=== PATIENT | female | born 1950 | race Caucasian/White ===

== ENCOUNTER 2018-02-24 08:56 | Day surgery (SDC) | payer MEDICARE, MEDICAID ==
[~2018-02-24] VITALS: Ht 162.6 cm; Wt 95.0 kg
[~2018-02-24 08:56] MED LIST: CHOL200035 PO; COU3T PO; COU7.5T PO; ESOM20CA PO; FENO48TA15 PO; FURO-150 PO; GABA-338 PO; LISI40TA4 PO; NORCO10T PO; POTA8TAB46 PO; PRAV40TA65 PO
[2018-02-24 09:05] VITALS: BP 142/73
[2018-02-24] MEDS ORDERED: fentaNYL/PF 50MCG/1 ML 2ML syringe ONE (09:20)
[2018-02-24] MEDS ORDERED: MIDAZolam 5mg/5ml vial ONE (09:20)
[2018-02-24] MEDS ORDERED: LIDOcaine Viscous 15ml cup ONE (09:20)
[2018-02-24] MEDS ORDERED: WARF5TAB PO (09:22)
[2018-02-24] MEDS ORDERED: FENO145T38 PO (09:24)
[2018-02-24] MEDS ORDERED: ATOR-2 PO (09:24)
[2018-02-24] MEDS ORDERED: LISI-600 PO (09:25)
[2018-02-24 10:21] VITALS: BP 143/65
[2018-02-24 10:31] VITALS: BP 133/70
[2018-02-24 10:41] VITALS: BP 118/66
== END 2018-02-24 11:00 | disposition home or self-care (01) ==
LOC: GI LAB 08:56
PROVIDERS: ATTEND Internal Medicine Gastroenterology
DX: Z12.11 Encounter for screening for malignant neoplasm of colon (principal); D12.0 Benign neoplasm of cecum; K57.30 Diverticulosis of large intestine without perforation or abscess without bleeding; K44.9 Diaphragmatic hernia without obstruction or gangrene; K22.2 Esophageal obstruction; K29.70 Gastritis, unspecified, without bleeding; Z86.010 Personal history of colon polyps; K21.9 Gastro-esophageal reflux disease without esophagitis
CPT/HCPCS: 43239; 43450; 45385; 99153; G0500; J2250; J3010; J7030; 88305; A4620

== ENCOUNTER 2020-11-18 09:30 | Emergency (ER) | payer MEDICARE, MEDICAID ==
[~2020-11-18] VITALS: Ht 162.6 cm; Wt 90.0 kg
[~2020-11-18 09:30] MED LIST changes: +ATOR-2 PO; -COU7.5T PO; +FENO145T38 PO; -FENO48TA15 PO; +LISI20TA28 PO; -LISI40TA4 PO; -PRAV40TA65 PO; +WARF5TAB2 PO
[2020-11-18 10:26] LABS: BASOPHILS # (AUTO) 0.1 X10'3 (0-0.2); BASOPHILS % (AUTO) 1.3 % (0-1); EOSINOPHILS # (AUTO) 0.1 X10'3 (0-0.9); EOSINOPHILS % (AUTO) 1.1 % (0-6); HEMATOCRIT 44.2 % (35.0-45.0); HEMOGLOBIN 14.8 g/dl (12.0-16.0); LYMPHOCYTES # (AUTO) 1.5 X10'3 (1.1-4.8); LYMPHOCYTES % (AUTO) 18.7 % (21-51); MEAN CORPUSCULAR HEMOGLOBIN 30.9 PG (27.0-31.0); MEAN CORPUSCULAR HGB CONC 33.5 g/dL (33.0-36.5); MEAN PLATELET VOLUME 10.2 FL (7.4-10.4); MONOCYTES # (AUTO) 0.7 X10'3 (0-0.9); MONOCYTES % (AUTO) 8.3 % (2-12); NEUTROPHILS # (AUTO) 5.6 X10'3 (1.8-7.7); NEUTROPHILS % (AUTO) 70.6 % (42-75); PLATELET COUNT 323 X10'3 (140-440); RED CELL DISTRIBUTION WIDTH 13.6 % (11.5-14.5)
[2020-11-18 10:42] LABS: ALANINE AMINOTRANSFERASE 56 U/L (12-78); ALBUMIN 3.3 G/DL (3.4-5.0); ALBUMIN/GLOBULIN RATIO 0.7 (1.1-1.5); ALKALINE PHOSPHATASE 147 IU/L (46-116); ANION GAP 7 (8-16); ASPARTATE AMINO TRANSFERASE 82 U/L (10-37); BILIRUBIN,TOTAL 0.3 MG/DL (0.1-1.0); BLOOD UREA NITROGEN 13 MG/DL (7-18); BUN/CREATININE RATIO 9.9 (6.6-38.0); CALCIUM 9.3 MG/DL (8.5-10.1); CHLORIDE 104 MMOL/L (99-107); CREATININE 1.31 MG/DL (0.40-0.90); GLUCOSE 110 MG/DL (70-104); LIPASE 206 U/L (73-393); POTASSIUM 3.6 MMOL/L (3.5-5.1); SODIUM 140 MMOL/L (135-145); TOTAL CARBON DIOXIDE 28.7 MMOL/L (24-32); TOTAL PROTEIN 7.8 G/DL (6.4-8.2); eGFR 40 ML/MIN
[2020-11-18 11:42] LABS: CLARITY,URINE CLEAR (Clear); COLOR,URINE YELLOW (Yellow); GLUCOSE, URINE NEGATIVE (Neg); KETONES,URINE NEGATIVE (Neg); LEUKOCYTE ESTERASE ,URINE SMALL (Neg); NITRITES, URINE NEGATIVE (Neg); OCCULT BLOOD,URINE NEGATIVE (Neg); PH,URINE 5.5 (4.8-8.0); PROTEIN,URINE NEGATIVE (Neg); UROBILINOGEN,URINE 0.2 E.U/dL (0.2-1.0)
[2020-11-18 11:46] LABS: UA COLLECTION TYPE CLN CATCH MIDSTREAM
[2020-11-18 11:48] LABS: RBC,URINE NONE SEEN /HPF (0-2)
[2020-11-18 11:49] LABS: BACTERIA,URINE FEW /HPF (Neg); CAL OXALATE CRYSTALS 1+ /HPF (NEGATIVE); SQUAMOUS EPITHELIAL CELL,UR MODERATE /LPF (FEW)
[2020-11-18 11:50] LABS: FINE GRANULAR CAST 0-3 /LPF (NEGATIVE); WBC CLUMPS,URINE FEW /HPF (NEGATIVE)
[2020-11-18] MEDS ORDERED: normal saline 1000ML IV soln IVB ONE (11:55)
[2020-11-18] MEDS ORDERED: iohexol 350MG/ML 100ml bottle IV ONE (12:19)
[2020-11-18 15:05] VITALS: BP 138/68
== END 2020-11-18 14:55 | disposition home or self-care (01) ==
LOC: ER 09:30
DX: K57.92 Diverticulitis of intestine, part unspecified, without perforation or abscess without bleeding (principal); E78.00 Pure hypercholesterolemia, unspecified; K21.9 Gastro-esophageal reflux disease without esophagitis; I10 Essential (primary) hypertension; G89.29 Other chronic pain; Z87.11 Personal history of peptic ulcer disease; Z87.440 Personal history of urinary (tract) infections; Z56.0 Unemployment, unspecified; Z90.710 Acquired absence of both cervix and uterus; Z98.51 Tubal ligation status; Z88.6 Allergy status to analgesic agent; Z88.8 Allergy status to other drugs, medicaments and biological substances; Z91.030 Bee allergy status; Z79.01 Long term (current) use of anticoagulants; Z79.899 Other long term (current) drug therapy
CPT/HCPCS: 36415; 74176; 80053; 81001; 83690; 85025; 85610; 87088; 96360; 96361; 99285; J7030; Q9967

== ENCOUNTER 2021-06-16 07:57 | Outpatient (CLI) | payer MEDICARE, MEDICAID ==
[~2021-06-16 07:57] MED LIST changes: -COU3T PO; +DIPH25CA83; -FENO145T38 PO
== END 2021-06-16 23:59 | disposition home or self-care (01) ==
LOC: 64 CT 07:57
PROVIDERS: ATTEND Surgery
DX: K44.9 Diaphragmatic hernia without obstruction or gangrene (principal); K80.20 Calculus of gallbladder without cholecystitis without obstruction; Z98.890 Other specified postprocedural states
CPT/HCPCS: 74176

== ENCOUNTER 2022-04-08 08:34 | Day surgery (SDC) | payer MEDICARE, MEDICAID ==
[~2022-04-08] VITALS: Ht 162.6 cm; Wt 87.3 kg
[2022-04-08 08:45] VITALS: BP 171/89
[2022-04-08] MEDS ORDERED: ALIR75PE5 (08:53)
[2022-04-08] MEDS ORDERED: VIT500TA8 (08:53)
[2022-04-08] MEDS ORDERED: vit B12 (08:53)
[2022-04-08] MEDS ORDERED: LIDOcaine Viscous 15ml cup ONE (09:07)
[2022-04-08] MEDS ORDERED: MIDAZolam 1 MG/ML 5ML VIAL ONE (09:07)
[2022-04-08] MEDS ORDERED: fentaNYL/PF 50MCG/1 ML 2ML syringe ONE (09:07)
[2022-04-08 09:33] VITALS: BP 157/79
[2022-04-08 09:43] VITALS: BP 137/76
[2022-04-08 09:59] VITALS: BP 131/68
== END 2022-04-08 10:15 | disposition home or self-care (01) ==
LOC: GI LAB 08:34
PROVIDERS: ATTEND Internal Medicine Gastroenterology
DX: K22.2 Esophageal obstruction (principal); K44.9 Diaphragmatic hernia without obstruction or gangrene; K29.50 Unspecified chronic gastritis without bleeding; K31.7 Polyp of stomach and duodenum; Z79.899 Other long term (current) drug therapy
CPT/HCPCS: 43239; 43450; G0500; J2250; J3010; J7030; Z7512; 88305; 99152; A4620

== ENCOUNTER → 2023-12-13 | Outpatient (CLI) | payer MEDICARE, MEDICAID ==
[~2023-12-13] MED LIST changes: +ALIR75PE5; -LISI20TA28 PO; -NORCO10T PO; +VIT500TA8; +vit B12
== END | disposition home or self-care (01) ==
LOC: RAD 08:55
PROVIDERS: ATTEND Family Medicine
DX: M25.511 Pain in right shoulder (principal); M25.512 Pain in left shoulder
CPT/HCPCS: 73030